=== PATIENT | male | born 1945 | race Caucasian/White ===

== ENCOUNTER 2020-10-21 14:13 | Emergency (ER) | payer OTHER, MEDICARE ==
--- NOTE | 2020-10-21 14:44 | EDM.PDOC ---
ED HPI GENERAL MEDICAL PROBLEM - General Chief Complaint: General Time Seen by Provider: 10/21/20 14:38 Source of Information: Reports: Patient, EMS Notes Reviewed - History of Present Illness INITIAL COMMENTS - FREE TEXT/NARRATIVE: Patient does arrive DOA after EMS being called out for respiratory distress. When crew arrived, had agonal breathing. states their recent travel from [facility] was physically taxing. He did develop coughing, and phlegm production. Had difficulty expectorating. Saturations started dropping today. History of ALS, did have a no resuscitation wish per his and son. No CPR performed. When he arrived to ED, no pulse was found at the femoral or carotid areas. No heart tones auscultated on arrival. Was hooked up to telemetry leads showing asystole. - Related Data Allergies Allergy/AdvReac Type Severity Reaction Status Date / Time Unable to Assess Allergy Unverified 10/21/20 14:28 Home Meds: Home Meds . [Unable to Verify Home Med List] 10/21/20 [History] ED ROS GENERAL - Review of Systems Review Of Systems: Unable To Obtain Reason Not Obtained: ED EXAM, GENERAL - Physical Exam Exam: See Below Free Text/Narrative:: Patient not breathing, no neurologic response. Pupils fixed, dilated. No heart tones auscultated. and son at bedside, organ donation has been called by nursing for possible referral. Exam Limited By: Other (patient is ) Departure - Departure Time of Disposition: 14:13 Disposition: 20 Preliminary Cause of *Q: Respiratory Failure Clinical Impression: due to respiratory arrest - Discharge Information *PRESCRIPTION DRUG MONITORING PROGRAM REVIEWED*: Not Applicable *COPY OF PRESCRIPTION DRUG MONITORING REPORT IN PATIENT ZENA: Not Applicable Referrals: PCP,Not In Area [Primary Care Provider] - Forms: ED Department Discharge
== END 2020-10-21 18:40 | disposition expired ==
LOC: VM.ED 14:13
DX: R09.2 Respiratory arrest (principal)
CPT/HCPCS: 99284; 99285